=== PATIENT | female | born 1970 | race Caucasian/White ===

== ENCOUNTER → 2017-01-06 | Outpatient (CLI) | payer BC ==
--- NOTE | ~2017-01-06 | US128 ---
[id number] [facility] [address] [place], [place] [address] [id number] O MR#: [id number] Acc #: [id number] NAME: SAURAV SALVADOR : 1970 SEX: F STUDY DATE/TIME: 01/06/2017 15:25 UNIT: [facility] ROOM: STUDY DESCRIPTION: Thyroid Attending Physician: Tina Watson Referring Physician: Tina Watson Primary Care Physician: Beena Chacon M.D. 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 Patient's history states followup nodules, hypothyroidism, on medication. COMPARISON Thyroid ultrasound 09/28/2015. Isthmus measures 3 mm thickness. The right thyroid lobe measures approximately 1.2 cm x 3.6 cm x 1 cm. The left thyroid lobe measures approximately 1.2 cm x 3.5 cm x 0.8 cm. The thyroid parenchyma is mildly heterogeneous. A benign appearing cystic lesion in the thyroid isthmus to the right of midline measures 6 mm x 2 mm x 6 mm, not thought to be significantly changed from the prior study where it measured 6 mm x 3 mm x 6 mm. No suspicious solid nodule is identified. No suspicious microcalcifications are evident. The visualized portion of the extrathyroidal soft tissues appear unremarkable. IMPRESSION Mildly heterogeneous thyroid gland with a single simple benign-appearing isthmic cyst to the right of midline measuring 6 mm. There are no suspicious nodules to warrant fine-needle aspiration at this time, following the Society of Radiologist and Ultrasound criteria for thyroid nodule management. Dictated by... Bev Bauer M.D. THIS IS AN ELECTRONICALLY VERIFIED REPORT Bev Bauer M.D. at 01/08/2017 10:05 AM TAYLER/cristina TD: 01/07/2017 21:05 JOB #: [id number] MEDICAL IMAGING REPORT Page 1 of 1 COPY
== END | disposition home or self-care (01) ==
LOC: CGUS 12-26 13:30
DX: E04.2 Nontoxic multinodular goiter (principal)
CPT/HCPCS: 76536